=== PATIENT | female | born 1960 | race Caucasian/White ===

== ENCOUNTER 2019-10-19 11:31 | Inpatient (IN) ==
[2019-10-19] MEDS ORDERED: 0.9 % Sodium Chloride 1,000 ML IVC ONE (11:44)
[2019-10-19] MEDS ORDERED: Ipratropium/Albuterol Neb 3 ML IH ONE (11:45)
[2019-10-19 12:18] LABS: Basophils % 0.5 %; Eosinophils % 1.1 %; Hematocrit 39.6 % (35.3-44.9); Hemoglobin 13.3 g/dL (11.5-15.4); Immature Granulocytes % 0.3 % (0-4); Lymphocytes # 1.2 K/mcL (0.6-4.6); Lymphocytes % 30.9 %; Mean Corpuscular HGB Conc 33.6 g/dL (31.6-35.5); Mean Corpuscular Hemoglobin 29.9 pg (28.0-33.3); Mean Platelet Volume 9.1 fL (9.4-12.4); Monocytes # 0.4 K/mcL (0.0-1.3); Monocytes % 10.9 %; Neutrophils # 2.1 K/mcL (1.6-8.9); Platelet Count 175 K/mcL (140-400); Red Blood Count 4.45 M/mcL (3.82-4.97); Red Cell Distribution Width 11.7 % (11.5-14.5); Segmented Neutrophils % 56.3 %; White Blood Count 3.8 K/mcL (4.3-11.1)
[2019-10-19 12:33] LABS: BUN/Creatinine Ratio 16 (6-26); Blood Urea Nitrogen 15 mg/dL (6-20); Calcium 9.5 mg/dL (8.6-10.3); Carbon Dioxide 24 mEq/L (23-29); Chloride 96 mEq/L (98-107); Glucose 125 mg/dL (70-105); Osmolality,Calculated 270 (280-300); Sodium 129 mEq/L (136-145); eGFR For African Americans > 60 (> 60); eGFR For Non-African Americans > 60 (> 60)
[2019-10-19 12:34] LABS: Troponin I < 0.03 ng/mL (< 0.04)
[2019-10-19 13:12] LABS: Bilirubin,Urine Negative (Negative); Blood,Urine Negative (Negative); Clarity,Urine Clear (Clear); Color,Urine Light-Yellow (Yellow); Glucose,Urine (UA) Normal (Normal); Ketones,Urine Negative (Negative); Leukocyte Esterase,Urine Negative (Negative); Nitrite,Urine Negative (Negative); PH,Urine 6.5 pH Units (5.0-8.0); Protein,Urine Negative (Neg-Trace); Specific Gravity,Urine 1.009 (1.010-1.025); Urobilinogen,Urine Normal (Normal)
[2019-10-19] MEDS ORDERED: Naloxone 0.4 MG/ML INJ IVP PRN (13:36)
[2019-10-19] MEDS ORDERED: Ondansetron 4 MG/2 ML VIAL IVP PRN (13:36)
[2019-10-19] MEDS ORDERED: Ibuprofen 600 MG TABLET PO PRN (13:37)
[2019-10-19] MEDS: Nicotine 14 MG PATCH.TD24 TD SCH (15:47)
[2019-10-19] MEDS: clonazePAM 0.5 MG TABLET PO SCH ×2 (15:48→20:48)
[2019-10-19] MEDS: 0.9 % Sodium Chloride 1,000 ML IVC SCH (15:48)
[2019-10-19] MEDS: *HR* Heparin 5,000 UNIT/ML VIAL SQ SCH (17:48)
[2019-10-19] MEDS: Gabapentin 300 MG CAPSULE PO SCH (20:49)
[2019-10-19] MEDS: OXcarbazepine 150 MG TABLET PO SCH (20:49)
[2019-10-19] MEDS: risperiDONE 1 MG TABLET PO SCH (20:49)
[2019-10-20] MEDS: 0.9 % Sodium Chloride 1,000 ML IVC SCH ×2 (04:09→20:59)
[2019-10-20] MEDS: *HR* Heparin 5,000 UNIT/ML VIAL SQ SCH ×2 (05:37→17:23)
[2019-10-20 07:57] LABS: Basophils % 0.7 %; Eosinophils # 0.1 K/mcL (0.0-0.6); Eosinophils % 2.2 %; Hematocrit 34.8 % (35.3-44.9); Hemoglobin 11.6 g/dL (11.5-15.4); Immature Granulocytes % 0.2 % (0-4); Lymphocytes # 1.7 K/mcL (0.6-4.6); Lymphocytes % 42.1 %; Mean Corpuscular HGB Conc 33.3 g/dL (31.6-35.5); Mean Corpuscular Hemoglobin 30.1 pg (28.0-33.3); Mean Corpuscular Volume 90.4 fL (83.0-100.0); Mean Platelet Volume 9.3 fL (9.4-12.4); Monocytes # 0.3 K/mcL (0.0-1.3); Monocytes % 8.1 %; Neutrophils # 1.9 K/mcL (1.6-8.9); Platelet Count 176 K/mcL (140-400); Red Blood Count 3.85 M/mcL (3.82-4.97); Red Cell Distribution Width 11.9 % (11.5-14.5); Segmented Neutrophils % 46.7 %; White Blood Count 4.1 K/mcL (4.3-11.1)
[2019-10-20 08:13] LABS: BUN/Creatinine Ratio 16 (6-26); Blood Urea Nitrogen 13 mg/dL (6-20); Calcium 8.8 mg/dL (8.6-10.3); Carbon Dioxide 26 mEq/L (23-29); Chloride 103 mEq/L (98-107); Chol/HDL Ratio 2.1 (0-4.9); Cholesterol 105 mg/dL (< 200); Glucose 90 mg/dL (70-105); HDL Cholesterol 49 mg/dL (40-59); LDL Cholesterol,Calculated 36 mg/dL (< 100); Osmolality,Calculated 276 (280-300); Potassium 4.1 mEq/L (3.5-5.1); Sodium 133 mEq/L (136-145); Triglycerides 100 mg/dL (< 150); eGFR For African Americans > 60 (> 60); eGFR For Non-African Americans > 60 (> 60)
[2019-10-20] MEDS ORDERED: polyethylene glycoL 3350 17 GM POWD.PACK PO PRN (08:22)
[2019-10-20] MEDS: Nicotine 14 MG PATCH.TD24 TD SCH (08:25)
[2019-10-20] MEDS: OXcarbazepine 150 MG TABLET PO SCH ×2 (08:25→20:51)
[2019-10-20] MEDS: Cholecalciferol (D-3) 1,000 UNIT (25MCG) TABLET PO SCH (08:26)
[2019-10-20] MEDS: Gabapentin 300 MG CAPSULE PO SCH ×2 (08:26→20:51)
[2019-10-20] MEDS: risperiDONE 1 MG TABLET PO SCH ×2 (08:27→20:51)
[2019-10-20] MEDS: clonazePAM 0.5 MG TABLET PO SCH ×3 (08:32→20:59)
[2019-10-20] MEDS ORDERED: ZETIA 10MG PO SCH (09:00)
[2019-10-21 03:00] LABS: BUN/Creatinine Ratio 19 (6-26); Blood Urea Nitrogen 19 mg/dL (6-20); Calcium 8.6 mg/dL (8.6-10.3); Carbon Dioxide 27 mEq/L (23-29); Chloride 101 mEq/L (98-107); Glucose 103 mg/dL (70-105); Osmolality,Calculated 277 (280-300); Potassium 3.9 mEq/L (3.5-5.1); Sodium 132 mEq/L (136-145); eGFR For African Americans > 60 (> 60); eGFR For Non-African Americans 58 (> 60)
[2019-10-21] MEDS: *HR* Heparin 5,000 UNIT/ML VIAL SQ SCH (05:22)
[2019-10-21 07:41] VITALS: BP 144/80
[2019-10-21] MEDS: Nicotine 14 MG PATCH.TD24 TD SCH (09:05)
[2019-10-21] MEDS: OXcarbazepine 150 MG TABLET PO SCH (09:07)
[2019-10-21] MEDS: Cholecalciferol (D-3) 1,000 UNIT (25MCG) TABLET PO SCH (09:07)
[2019-10-21] MEDS: risperiDONE 1 MG TABLET PO SCH (09:08)
[2019-10-21] MEDS: Gabapentin 300 MG CAPSULE PO SCH (09:08)
[2019-10-21] MEDS: clonazePAM 0.5 MG TABLET PO SCH (09:13)
== END 2019-10-21 11:57 | disposition home or self-care (01) | DRG 312 ==
LOC: EMEROOARM 11:31 → 3ANU 11:31 → SUATTDRO 13:51 → 3ANU 14:25
PROVIDERS: ADMIT Internal Medicine; ATTEND Family Medicine